=== PATIENT | female | born 1965 | race Caucasian/White ===

== ENCOUNTER 2017-01-29 06:53 | Inpatient (IN) | payer OTHER ==
[~2017-01-29] VITALS: Ht 157.5 cm; Wt 55.9 kg
[2017-01-29] VITALS (21 sets, daily range): BP systolic 108–155; BP diastolic 57–94; PULSE 82–99; RESP 11–22; Ht 157.5 cm; Wt 55.9 kg
[2017-01-29] MEDS ORDERED: AMIT10TA6 PO (08:23)
[2017-01-29] MEDS ORDERED: SUCR1TAB56 PO (08:24)
[2017-01-29] MEDS ORDERED: TOPI200T8 PO (08:24)
[2017-01-29] MEDS ORDERED: HYDR-902 PO (08:28)
--- NOTE | 2017-01-29 09:33 | HPN ---
Date/Time of Note Date/Time of Note DATE: 01/29/17 TIME: 09:33 Interval H&P Admission Note Pt. seen H&P reviewed: No system changes MAMADOU HERNÁNDEZ MD Jan 29, 2017 09:33
[2017-01-29] MEDS ORDERED: THROMBIN 5000 UNIT VIAL ONE ×2 (09:44→11:04)
[2017-01-29] MEDS ORDERED: GELATIN SIZE 100 SPONGE ONE (09:44)
[2017-01-29] MEDS ORDERED: SURGIFOAM POWDER 1 GM KIT ONE (09:44)
[2017-01-29] MEDS ORDERED: POLYMYXIN/BACITRACIN 1L IRRIG ONE (09:44)
[2017-01-29] MEDS ORDERED: CEPASTAT LOZENGE MT PRN (10:00)
[2017-01-29] MEDS ORDERED: ONDANSETRON 4 MG INJ IV PRN ×2 (10:00→11:30)
[2017-01-29] MEDS ORDERED: HYDROmorphONE 1 MG/ML SYG IV PRN (10:00)
[2017-01-29] MEDS ORDERED: NALOXONE (0.4 MG/ML) INJ IV PRN (10:00)
[2017-01-29] MEDS ORDERED: HYDROmorphONE 0.2 MG/ML PCA IV SCH (10:00)
[2017-01-29] MEDS ORDERED: FENTAnyl 50 MCG/ML VIAL ONE ×3 (10:04→12:42)
[2017-01-29] MEDS ORDERED: LABETALOL HCL 20MG INJ ONE (10:54)
[2017-01-29] MEDS ORDERED: SUCCINYLCHOLINE CHLORIDE 100 MG/5 ML SYG IV ONE (11:05)
[2017-01-29] MEDS ORDERED: SUGAMMADEX SODIUM 200 MG/2 ML VIAL IV ONE (11:05)
[2017-01-29] MEDS ORDERED: ROCURONIUM 50 MG INJ ONE (11:05)
[2017-01-29] MEDS ORDERED: LIDOCAINE 2% (SDV) 5 ML INJ ONE (11:05)
[2017-01-29] MEDS ORDERED: PROPOFOL 40 ML ONE (11:05)
[2017-01-29] MEDS ORDERED: CEFAZOLIN 1 GM INJ ONE (11:05)
[2017-01-29] MEDS ORDERED: BUPIVACAINE 0.5%/EPI (SDV) 30 ML INJ INJ ONE (11:23)
[2017-01-29] MEDS ORDERED: HYDROmorphONE (0.2 MG/ML) 10ML SYG IV PRN ×3 (11:30)
[2017-01-29] MEDS ORDERED: MEPERIDINE 25 MG INJ IV PRN (11:30)
[2017-01-29] MEDS ORDERED: DIPHENHYDRAMINE 50 MG INJ IV PRN ×2 (11:30→13:00)
[2017-01-29] MEDS ORDERED: FENTAnyl 50 MCG/ML VIAL IV PRN (11:30)
[2017-01-29] MEDS ORDERED: METOCLOPRAMIDE 10 MG INJ IV PRN (11:30)
--- NOTE | 2017-01-29 12:40 | SIPON ---
Date/Time of Note Date/Time of Note DATE: 01/29/17 TIME: 12:37 Operative Report Preoperative Diagnosis C5-6 C6-7 stenosis and radiculopathy Postoperative Diagnosis C5-6 C6-7 stenosis and radiculopathy Operation/Procedure Performed ACDF C5-6 C6-7 Surgeon see signature line gift shop assistant Uyen gorodn Anesthesia: general Estimated blood loss: 10 - 50 ml's Transfusion Required none Specimen Disc Grafts/Implants Cervical plate and cage Complications none MAMADOU HERNÁNDEZ MD Jan 29, 2017 12:40
[2017-01-29] MEDS ORDERED: NALOXONE (0.4 MG/ML) INJ ONE (12:47)
--- NOTE | 2017-01-29 12:53 | RADRPT ---
PROCEDURE: Intraoperative fluoroscopy. CLINICAL INDICATION: Intraoperative fluoroscopy during cervical spine surgery. TECHNIQUE: 8 spot intraoperative fluoroscopic images were provided. The images were reviewed on a high-resolution PACS workstation. COMPARISON: None available FINDINGS: Multiple spot intraoperative fluoroscopic views were provided during cervical spine surgery. The im ages demonstrate initial metallic probe at the C5-6/C6-7 levels. Subsequent images demonstrate anter ior cervical discectomy and fusion at C5-6 and C6-7. The total fluoroscopy time was 12.9 second. IMPRESSION: 1. Multiple spot intraoperative fluoroscopic views during cervical spine surgery were provided. 2. Please see operative report of the same day for further information. RPTAT: HGAS .Jose Moreland MD, MD Date Time Electronically viewed and signed by .Jose Moreland MD, on 01/29/2017 12:53 .S/
[2017-01-29] MEDS: FENTAnyl 50 MCG/ML VIAL IV PRN ×2 (12:58→13:08)
[2017-01-29] MEDS ORDERED: AL HYDROX/MG HYDROX/SIMETH 30 ML CUP PO PRN (13:00)
[2017-01-29] MEDS ORDERED: BISACODYL 10 MG SUPP PR PRN (13:00)
[2017-01-29] MEDS ORDERED: DIPHENHYDRAMINE 25 MG CAP PO PRN (13:00)
[2017-01-29] MEDS ORDERED: ACETAMINOPHEN 325 MG TAB PO PRN (13:00)
[2017-01-29] MEDS: CARISOPRODOL 350 MG TAB PO SCH ×3 (14:04→21:00)
[2017-01-29] MEDS: D5W-0.45 NACL + KCL 20 MEQ 1,000 ML IV SCH (16:59)
[2017-01-29] MEDS: CEFAZOLIN 1 GM/50 ML (PMX) 50 ML IVPB SCH (16:59)
[2017-01-29] MEDS: HYDROmorphONE 0.2 MG/ML PCA IV SCH (18:21)
--- NOTE | 2017-01-29 18:52 | OPR ---
DATE OF OPERATION: 01/29/2017 PREOPERATIVE DIAGNOSES: C5-C6, C6-C7 cervical disc disease, stenosis and radiculopathy. POSTOPERATIVE DIAGNOSES: C5-C6, C6-C7 cervical disc disease, stenosis and radiculopathy. PROCEDURE: 1. Anterior cervical discectomy at C5-C6 and C6-C7. 2. Anterior cervical fusion at C5-C6, C6-C7. 3. Placement of intervertebral biomechanical device at C5-C6, C6-C7. 4. Placement of anterior cervical plate at C5, C6, and C7. 5. Use of allograft. 6. Use of C-arm flash with interpretation without radiologist present. 7. Intraoperative neuro monitoring (1 hour 45 minutes). IMPLANTS: 1. Zavation 26 mm plate with 12 mm screws. 2. BK Peek cages 6 x 14 x 16 mm x2. 3. Fiber graft matrix. PRIMARY SURGEON: Pool Benavides MD EXCEL VBA DEVELOPER: RUTH Lawrence- NEED FOR ANALYTICS SENIOR MANAGER: assistant farm operations manager was required to retract the neurovascular elements. FINDINGS: Neuro monitoring throughout the case revealed left C5 amplitude down 40 percent, left C6 and C7 amplitude down 30 percent. At the end of the case, nerve signal returned to normal. Patient had stenosis at the C5-C6 and C6-C7 due to osteophytes. There was also a central disc extrusion at C5-C6. ESTIMATED BLOOD LOSS: 40 mL. DRAINS: None. SPECIMEN: Disc. COMPLICATIONS: None. ANESTHESIOLOGIST: Junior Hwang MD TYPE OF ANESTHESIA: General. INDICATIONS FOR PROCEDURE: This is a 51-year-old female with cervical radiculopathy. She has failed nonoperative measures. Therefore, I recommended proceeding with the above mentioned surgery. Preoperatively, discussed risks, benefits, alternatives, she understood, wished to proceed. DESCRIPTION OF PROCEDURE IN DETAIL: The patient was identified in the holding area, given Ancef antibiotics in the operating room, where she was successfully placed under general anesthesia. Neuro monitoring leads were placed. Sequential compression devices were applied. Browne catheter was introduced. Neural monitor was utilized during the procedure for 1 hour 45 minutes to include SSEP, MEP, and EMG. This was performed by [facility]. Start time was 10:45 a.m. closure time was 12:30 p.m. The patient was placed on the operating room table in supine position. Towel rolls were placed. Arms were tucked to the side. Neck was extended and prepped and draped in usual sterile fashion. The incision was injected with Marcaine and epinephrine. Left-sided neck incision was made. Platysma was incised in line with the skin incision. I then identified the interval between the sternocleidomastoid and strap muscles and identified the anterior spine. I placed a bent spinal needle into the C6- C7 level and confirmed this with a lateral C-arm image. I next subperiosteal dissected the longus coli musculature. Self- retaining retractors were then placed. Anesthesiologist deflated and reinflated the endotracheal cuff. I next performed anterior cervical decompressions and diskectomies at C5-C6 and C6-C7 using curettes, Kerrison punches, pituitary rongeurs, and high-speed bur. I removed the posterior osteophytes at both levels and at the C5-C6 level removed the extruded herniation. This allowed me to decompress the spinal cord and the neural foramina bilaterally at C5-C6 and C6-C7. The endplates were prepared with a high- speed bur. Trials were placed and I chose the appropriate graphite. I then took a peek cage, within which I placed allograft and I impacted this into the C6-C7 level. I then took another Peek cage within which I placed allograft and I impacted this into the C5-C6 level. This completed the anterior cervical fusion at both levels. I then took a 26 mm plate and affixed this anteriorly spanning from C5-C7 with placement of 12 mm screws locking the screws down. Once this was done, I took final AP and lateral images. I was happy with placing the hardware and the alignment of the spine. All nerve signals returned to normal. Of note, the decompression was performed under the use of the microscope. I irrigated the wound. Hemostasis was achieved with bipolar cautery, Surgifoam and Gelfoam and thrombin. After irrigation, the retractors removed and I closed the platysma with a running number with a running 2-0 Vicryl stitch. I then closed subcutaneous tissue with 3-0 Vicryl stitch. Dermabond was then applied. The patient was then awakened from anesthesia, and taken to the recovery room in stable condition. Lap, sponge, and counts correct x2. There were no apparent complications during the procedure. The patient will be admitted to [facility] for routine postoperative care to include pain control, antibiotics and physical therapy. Dictated By: Pool Benavides MD /[email or web address]/andrea /Document#: [id number] MTDD
[2017-01-29] MEDS ORDERED: LORAZEPAM 2 MG INJ IV ONE ×2 (20:00→20:30)
--- NOTE | 2017-01-29 20:24 | CONS ---
Date/Time of Note Date/Time of Note DATE: 01/29/17 TIME: 20:04 Assessment/Plan Assessment/Plan Problems: (1) Cervical neck pain with evidence of disc disease Status: Resolved Comment: Patient status post anterior cervical discectomy at C5-C6 and C6-C7 with anterior cervical fusion at C5-C6, C6-C7 (2) Other specified aftercare following surgery Status: Acute Comment: Patient on TRANSACTION COORDINATOR pump pain moderately controlled. (3) Chest pain at rest Status: Acute Comment: Differential, Cardiac, esophageal, anxiety. Additional Assessment/Plan Will order EKG with troponin to be conservative. Patient appears anxious and I will order a single dose of Ativan at this time. 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 She was diagnosed with C5-C6, C6-C7 cervical disc disease, stenosis and radiculopathy. She failed medical management is now status post anterior cervical discectomy at C5-C6 and C6-C7. with anterior cervical fusion. Postoperatively she was experiencing some back and shoulder tightness. She received SOMA with relief and was able to get up and move around. As the effect of the SOMA and once back in bed she is complaining of chest pain like pressure radiating to the left shoulder. Denies nausea, no diaphoresis. Past Medical History Medical History: peptic ulcer disease, other (Thyroid adenoma) Past Surgical History Past Surgical Hx: cholecystectomy, other (partial thyroidectomy DINORAH with right oopherectomy) Family History Significant Family History: no pertinent family hx Social History Alcohol Use: none Smoking Status: Never smoker Drug Use: none Exam/Review of Systems Vital Signs Vitals Vital Signs Date Time Temp Pulse Resp B/P Pulse Ox O2 Delivery O2 Flow Rate FiO2 01/29/17 19:52 97.8 92 18 120/57 96 01/29/17 16:30 Nasal Cannula 2.0 Exam Constitutional: alert, distress (appears anxious), oriented, well developed Psych: anxiety Head: normocephalic Eyes: EOMI, PERRL, nl conjunctiva Neck: other (in collar) Respiratory: clear to auscultation Cardiovascular: regular rate and rhythm (sinus tachycardia) Gastrointestinal: soft Musculoskeletal: nl extremities to inspection Extremities: normal pulses Neurological: nl mental status, nl speech, nl strength Skin: nl turgor, other (dry) Medications Medications Current Medications Potassium Chloride/Dextrose/ Sod Cl (D5-1/2ns + KCl 20 Meq) 1,000 ml @ 100 mls/ hr Q10H IV Last administered on 01/29/17 16:59; Admin Dose 100 MLS/HR; Start 01/29/17 at 13:00 Acetaminophen/ Hydrocodone Bitart ([place] (10325)) 1 tab Q4H PRN PO PAIN LEVEL 1-5; Start 01/30/17 at 10:00 Acetaminophen/ Hydrocodone Bitart ([place] (10325)) 2 tab Q4H PRN PO PAIN LEVEL 6-10; Start 01/30/17 at 10:00 Hydromorphone HCl 0.2 mg 0.2 mg Q1H PRN IV BREAKTHROUGH PAIN Last administered on 01/29/17 15:02; Admin Dose 0.2 MG; Start 01/29/17 at 10:00 Cefazolin Sodium (Ancef 1 Gm/50 ml (Pmx)) 50 ml @ 100 mls/hr Q8H IVPB Last administered on 01/29/17 16:59; Admin Dose 100 MLS/HR; Start 01/29/17 at 13:00 ; Stop 01/30/17 at 05:29 Ondansetron HCl (Zofran Inj) 4 mg Q6H PRN IV NAUSEA AND/OR VOMITING; Start at 10:00 Bisacodyl (Dulcolax Supp) 10 mg DAILY PRN [place] CONSTIPATION; Start 01/29/17 at 13 :00 Docusate Sodium (Colace) 100 mg BID PO ; Start 01/29/17 at 21:00 Pantoprazole (Protonix Iv) 40 mg DAILY@06 IV ; Start 01/30/17 at 06:00 Al Hydrox/Mg Hydrox/Simethicone (Mag-Al Plus) 15 ml Q6H PRN PO CONSTIPATION/ DYSPEPSIA; Start 01/29/17 at 13:00 Acetaminophen (Tylenol Tab) 650 mg Q4H PRN PO MUNOZ OR TEMP GREATER THAN 101.3F; Start 01/29/17 at 13:00 Phenol (Cepastat Lozenge) 1 lozenge PRN PRN MT SORE THROAT; Start 01/29/17 at 10:00 Diphenhydramine HCl (Benadryl) 25 mg Q6H PRN PO ITCHING; Start 01/29/17 at 13: 00 Diphenhydramine HCl (Benadryl) 25 mg Q6H PRN IV ITCHING; Start 01/29/17 at 13: 00 Naloxone HCl (Narcan) 0.2 mg Q2M PRN IV RR 8 BREATHS/MIN OR LESS; Start at 10:00 Miscellaneous Information 1. Hold TRANSACTION COORDINATOR at 1,000... TRANSACTION COORDINATOR IV ; Start 01/29/17 at 10: 00 Carisoprodol (Soma) 350 mg TID PO Last administered on 01/29/17 15:13; Admin Dose 350 MG; Start 01/29/17 at 13:00 Acetaminophen/ Hydrocodone Bitart ([place] (10/325)) 2 tab ONCE@0930 PO ; Start at 09:30; Stop 01/30/17 at 12:00 Hydromorphone HCl (Dilaudid TRANSACTION COORDINATOR) TRANSACTION COORDINATOR to be started in PACU Q4PCA IV Last administered on 01/29/17 18:21; Admin Dose 6 MG; Start 01/29/17 at 14:30 YESENIA VASQUEZ MD Jan 29, 2017 20:14
[2017-01-29] MEDS: DOCUSATE SODIUM 100 MG CAP PO SCH (21:00)
[2017-01-30] MEDS: CEFAZOLIN 1 GM/50 ML (PMX) 50 ML IVPB SCH ×2 (00:17→09:00)
[2017-01-30] MEDS: CARISOPRODOL 350 MG TAB PO SCH ×2 (03:31→08:58)
[2017-01-30] MEDS: D5W-0.45 NACL + KCL 20 MEQ 1,000 ML IV SCH ×2 (03:31→09:00)
[2017-01-30] MEDS: HYDROmorphONE 0.2 MG/ML PCA IV SCH (03:39)
[2017-01-30 05:28] LABS: BASOPHIL # 0.1 10^3/ul (0.0-0.1); BASOPHILS % 0.5 % (0.0-2.0); EOSINOPHILS # 0.1 10^3/ul (0.0-0.5); EOSINOPHILS % 0.8 % (0.0-7.0); HEMATOCRIT 30.9 % (37.0-47.0); HEMOGLOBIN 10.3 g/dl (12.0-16.0); LYMPHOCYTES # 1.7 10^3/ul (0.8-2.9); LYMPHOCYTES % 15.3 % (15.0-51.0); MEAN CORPUSCULAR HEMOGLOBIN 31.4 pg (29.0-33.0); MEAN CORPUSCULAR HGB CONC 33.3 g/dl (32.0-37.0); MEAN CORPUSCULAR VOLUME 94.2 fl (82.0-101.0); MEAN PLATELET VOLUME 9.7 fl (7.4-10.4); MONOCYTE # 0.9 10^3/ul (0.3-0.9); MONOCYTES % 8.3 % (0.0-11.0); NEUTROPHIL # 8.3 10^3/ul (1.6-7.5); NEUTROPHILS % 74.7 % (39.0-77.0); PLATELET COUNT 207 10^3/UL (140-415); RED BLOOD COUNT 3.28 10^6/ul (4.20-5.40); RED CELL DISTRIBUTION WIDTH 13.4 % (11.5-14.5); WHITE BLOOD COUNT 11.2 10^3/ul (4.8-10.8)
[2017-01-30 05:32] VITALS: BP 100/63; PULSE 90; RESP 20
[2017-01-30] MEDS ORDERED: PANTOPRAZOLE 40 MG INJ IV SCH (06:00)
[2017-01-30 06:06] LABS: CALCIUM 8.8 mg/dl (8.4-10.2); CREATININE 0.71 mg/dl (0.44-1.00); MAGNESIUM 1.8 mg/dl (1.7-2.5); POTASSIUM 3.7 mmol/L (3.5-5.1)
[2017-01-30 08:21] VITALS: BP 96/57; RESP 16
[2017-01-30] MEDS: DOCUSATE SODIUM 100 MG CAP PO SCH (08:57)
[2017-01-30] MEDS ORDERED: HYDROCODONE/APAP (10/325) TAB PO SCH (09:30)
--- NOTE | 2017-01-30 09:43 | DS ---
Date/Time of Note Date/Time of Note DATE: 01/30/17 TIME: 09:42 Discharge Summary Admission/Discharge Info Admit Date/Time Jan 29, 2017 at 06:53 Discharge Date/Time 01/30 Discharge Diagnosis s/p cervical fusion Patient Condition: Good Procedures s/p cervical fusion Hx of Present Illness patient admitted to [facility] after undergoing cervical fusion. post op course uncomplicated stable for d/c f/u arranged Hospital Course neck and arm pain Home Meds Reported Medications Hydrocodone/Acetaminophen ([place] 10-325 Tablet) 1 Each Tablet, 1 EACH PO Q4 Y for PAIN, TAB 01/29/17 Sucralfate* (Carafate*) 1 Gm Tab, 1 GM PO AC MEALS AND BEDTIME, TAB 01/29/17 Topiramate* (Topiramate*) 200 Mg Tablet, 200 MG PO DAILY, TAB 01/29/17 Amitriptyline Hcl* (Amitriptyline Hcl*) 10 Mg Tablet, 20 MG PO QHS, #60 TAB 01/29/17 Primary Care Provider Not On Staff Doctor Pending Labs Laboratory Tests Test 01/29/17 20:40 01/30/17 04:36 Troponin I < 0.012ng/ml (0.00-0.12) White Blood Count 11.210^3/ul (4.8-10.8) Red Blood Count 3.2810^6/ul (4.20-5.40) Hemoglobin 10.3g/dl (12.0-16.0) Hematocrit 30.9% (37.0-47.0) Mean Corpuscular Volume 94.2fl (82.0-101.0) Mean Corpuscular Hemoglobin 31.4pg (29.0-33.0) Mean Corpuscular Hemoglobin Concent 33.3g/dl (32.0-37.0) Red Cell Distribution Width 13.4% (11.5-14.5) Platelet Count 60254^3/UL (140-415) Mean Platelet Volume 9.7fl (7.4-10.4) Neutrophils % 74.7% (39.0-77.0) Lymphocytes % 15.3% (15.0-51.0) Monocytes % 8.3% (0.0-11.0) Eosinophils % 0.8% (0.0-7.0) Basophils % 0.5% (0.0-2.0) Nucleated Red Blood Cells % 0.0/100WBC (0.0-0.0) Neutrophils # 8.310^3/ul (1.6-7.5) Lymphocytes # 1.710^3/ul (0.8-2.9) Monocytes # 0.910^3/ul (0.3-0.9) Eosinophils # 0.110^3/ul (0.0-0.5) Basophils # 0.110^3/ul (0.0-0.1) Nucleated Red Blood Cells # 0.010^3/ul (0.0-0.0) Sodium Level 140mmol/L (135-144) Potassium Level 3.7mmol/L (3.5-5.1) Chloride Level 109mmol/L (97-110) Carbon Dioxide Level 26mmol/L (21-31) Anion Gap 9 (8-16) Blood Urea Nitrogen 6mg/dl (7-20) Creatinine 0.71mg/dl (0.44-1.00) Glucose Level 111mg/dl (70-220) Calcium Level 8.8mg/dl (8.4-10.2) Magnesium Level 1.8mg/dl (1.7-2.5) MAMADOU HERNÁNDEZ MD Jan 30, 2017 09:43
[2017-01-30] MEDS ORDERED: HYDROCODONE/APAP (10/325) TAB PO PRN ×2 (10:00)
--- NOTE | 2017-01-30 14:12 | RADRPT ---
Vent Rate: 87 bpm RR Interval: 0 msec AL Interval: 180 msec QRS Duration: 88 msec QT Interval: 336 msec QTC Interval: 404 msec P-R-T [place]: 69 - -28 - 57 degrees Normal sinus rhythm Nonspecific T wave abnormality Abnormal ECG Electronically Signed By: Elijah Traore [id number]
== END 2017-01-30 12:35 | disposition home or self-care (01) | DRG 473 ==
LOC: REC 06:53 → EDSEX 06:53 → MS1 13:33
PROVIDERS: ADMIT Specialist; ATTEND Specialist
PROC: 0RG20K0 Fusion of 2 or more Cervical Vertebral Joints with Nonautologous Tissue Substitute, Anterior Approach, Anterior Column, Open Approach (ICD-10-PCS; 2017-01-29)
PROC: 0RB30ZZ Excision of Cervical Vertebral Disc, Open Approach (ICD-10-PCS; 2017-01-29)
PROC: 0RG20A0 Fusion of 2 or more Cervical Vertebral Joints with Interbody Fusion Device, Anterior Approach, Anterior Column, Open Approach (ICD-10-PCS; principal; 2017-01-29 10:00)
DX: M48.02 Spinal stenosis, cervical region (principal); R07.9 Chest pain, unspecified; M50.122 Cervical disc disorder at C5-C6 level with radiculopathy
CPT/HCPCS: 72052; 80048; 83735; 84484; 84703; 85025; 86999; 87086; 93005; 97162; C9113; J0690; J1170; J1200; J2060; J2175; J2310; J2405; J3010; J3480; J7999